=== PATIENT | female | born 1975 | race Two or more races ===

== ENCOUNTER 2020-08-26 20:08 | Emergency (ER) | payer MEDICAID ==
[~2020-08-26] VITALS: Ht 157.5 cm; Wt 74.4 kg
--- NOTE | 2020-08-26 20:37 | NUR ---
seen by Shravan DIMAS at bedside
--- NOTE | 2020-08-26 20:40 | NUR ---
order for x ray by Shravan DIMAS
[2020-08-26] MEDS ORDERED: IBUP-1955 PO (21:05)
--- NOTE | 2020-08-26 21:07 | NUR ---
EMT AT BED SIDE TO APPLY BASEBALL SPLINT ON L THUMB
[2020-08-26 21:27] VITALS: BP 129/84
--- NOTE | 2020-08-26 21:56 | NUR ---
Patient discharged to home in stable condition. Rx and Written and verbal after care instructions given. Patient verbalizes understanding of instruction.
== END 2020-08-26 21:59 | disposition home or self-care (01) ==
LOC: ER 20:13
DX: S62.525A Nondisplaced fracture of distal phalanx of left thumb, initial encounter for closed fracture (principal); W20.8XXA Other cause of strike by thrown, projected or falling object, initial encounter; Y93.89 Activity, other specified; Y92.89 Other specified places as the place of occurrence of the external cause; Y99.8 Other external cause status
CPT/HCPCS: 73140-TC